=== PATIENT | female | born 1980 | race Two or more races ===

== ENCOUNTER → 2024-10-23 | Outpatient (CLI) | payer BC, OTHER, SELFPAY ==
[2024-10-23 11:39] LABS: Basophils % (Auto) 1 % (0-2.5); Eosinophils # (Auto) 0.1 Thou/mm3 (0.0-0.5); Eosinophils % (Auto) 1 % (0-10); Hematocrit 37.9 % (36.0-46.0); Immature Granulocytes % (Auto) 0 % (0-0); Immature Granulocytes Auto 0.02 Thou/mm3 (0.00-0.00); Lymphocytes # (Auto) 1.9 Thou/mm3 (1.0-4.8); Lymphocytes % (Auto) 24 % (10-50); Mean Corpuscular HGB Conc 31.7 g/dl (31.0-37.0); Mean Corpuscular Hemoglobin 26.7 pg (25.0-35.0); Mean Corpuscular Volume 84 fL (80-100); Monocytes # (Auto) 0.4 Thou/mm3 (0.0-0.8); Monocytes % (Auto) 6 % (0-12); Neutrophils # (Auto) 5.3 Thou/mm3 (1.8-7.7); Neutrophils % (Auto) 68 % (37-80); Nucleated Red Blood Cell % 0 /100 WBC (0); Platelet Count 319 Thou/mm3 (140-440); RDW Standard Deviation 42.6 fL (36.4-46.3); Red Blood Count 4.49 Miln/mm3 (4.00-5.20); White Blood Count 7.8 Thou/mm3 (3.6-11.0)
[2024-10-23 11:55] LABS: Glucose Estimated Average 134 mg/dL (80-131); Hemoglobin A1C 6.3 % Hgb (4.8-6.0)
[2024-10-23 12:12] LABS: Alanine Aminotransferase 14 U/L (10-49); Albumin, Serum 4.4 gm/dL (3.5-5.0); Albumin/Globulin Ratio 1.9 (1.2-2.2); Alkaline Phosphatase 87 U/L (46-116); Anion Gap 8 (7-16); Aspartate Amino Transferase 15 U/L (0-34); BUN/Creatinine Ratio 17 Ratio (12-20); Bilirubin,Total 0.6 mg/dL (0.3-1.2); Blood Urea Nitrogen 12 mg/dL (9-23); Calcium 9.9 mg/dL (8.3-10.6); Calcium (Corrected) 9.9 mg/dL (8.5-10.1); Carbon Dioxide 25.1 mMol/L (20.0-31.0); Chloride 105 mMol/L (98-107); Creatinine (Component) 0.7 mg/dL (0.6-1.3); Globulin 2.3 gm/dL (2.3-3.5); Glucose 140 mg/dL (74-106); Osmolality,Calculated 277 (275-295); Potassium 4.3 mMol/L (3.4-5.1); Sodium 138 mMol/L (136-145); Thyroid Stimulating Hormone 1.11 uIU/mL (0.55-4.78); Total Protein 6.7 gm/dL (5.7-8.2); eGFR > 60 See Note
[2024-10-23 12:27] LABS: Cardiac Risk Estimate 5.4 RATIO (3.7-5.6); Cholesterol 183 mg/dL (132-200); HDL Cholesterol 34 mg/dL (40-60); LDL Cholesterol,Calculated 116 mg/dL (0-130); Triglycerides 164 mg/dL (30-150)
[2024-10-23 13:07] LABS: T4 (Thyroxine) 9.7 mcg/dL (4.5-10.9)
== END | disposition home or self-care (01) ==
LOC: COPL 10:28
PROVIDERS: PCP Family Medicine; Referring Provider Family Medicine; Visit Provider Family Medicine
DX: E66.9 Obesity, unspecified (principal); K59.00 Constipation, unspecified
CPT/HCPCS: 36415; 80053; 80061; 83036; 84436; 84443; 85025

== ENCOUNTER 2025-01-09 12:50 | Day surgery (SDC) | payer BC, SELFPAY ==
[2025-01-08 15:25] VITALS: BMI 36.3
[2025-01-09] VITALS (10 sets, daily range): BP systolic 118–149; BP diastolic 78–103; PULSE 57–69; RESP 15–20; TEMP 36.5–36.7; O2SAT 98–100; BMI 34.7
[2025-01-09 09:15] LABS: HCG Qualitative,Urine Negative
[2025-01-09] MEDS: SODIUM CHLORIDE 0.9% 500 ML 500 ML 20 ML IV (14:48)
[2025-01-09] MEDS: fentaNYL CIT INJ 50 mCg/ML AMP 2ML (ASD USE ONLY) IVP (14:54)
[2025-01-09] MEDS: MIDAZOLAM INJ 1 MG/ML VIAL 2 ML (ASD USE ONLY) 2 MG IVP (14:54)
--- NOTE | 2025-01-09 15:07 | SUR.PHASEII ---
PT ARRIVE TO PACU, REPORT RECEIVED FROM ODALIS GUTIERREZ. PT IS ABLE TO OPEN EYES SPONTANEOUSLY IN RESPONSE TO VERBAL COMMAND AND DRIFTED BACK TO SLEEP. NO ACUTE DISTRESS NOTED.
--- NOTE | 2025-01-09 15:29 | SUR.PHASEII ---
PT AWAKE AND SITTING IN THE GURNEY TAKING ORAL FLUID INTAKE.
== END 2025-01-09 15:42 | disposition home or self-care (01) ==
PROVIDERS: PCP Family Medicine; Referring Provider Specialist; Visit Provider Specialist
PROC: 0DBE8ZX Excision of Large Intestine, Via Natural or Artificial Opening Endoscopic, Diagnostic (ICD-10-PCS; CPT 45380; principal; 2025-01-09 11:00)
DX: Z12.11 Encounter for screening for malignant neoplasm of colon (principal); D12.8 Benign neoplasm of rectum; K64.0 First degree hemorrhoids
CPT/HCPCS: 45380; 81025; A4217; A4649; J1200; J2250; J3010; J7999